=== PATIENT | male | born 1980 | race Caucasian/White ===

== ENCOUNTER → 2019-03-24 | Outpatient (CLI) | payer OTHER ==
--- NOTE | 2019-03-24 11:27 | US ---
EXAMINATION TYPE: US carotid duplex BILAT DATE OF EXAM: 03/24/2019 COMPARISON: NONE CLINICAL HISTORY: R41.3 Memory loss. EXAM MEASUREMENTS: RIGHT: Peak Systolic Velocity (PSV) cm/sec ----- Right CCA: 128.7 ----- Right ICA: 160.9 ----- Right ECA: 143.2 ICA/CCA ratio: 1.3 RIGHT: End Diastole cm/sec ----- Right CCA: 25.2 ----- Right ICA: 36.7 ----- Right ECA: 13.9 LEFT: Peak Systolic Velocity (PSV) cm/sec ----- Left CCA: 162.9 ----- Left ICA: 151.0 ----- Left ECA: 125.5 ICA/CCA ratio: 0.9 LEFT: End Diastole cm/sec ----- Left CCA: 34.7 ----- Left ICA: 24.8 ----- Left ECA: 9.1 VERTEBRALS (direction of flow): Right Vertebral: Antegrade Left Vertebral: Antegrade Rhythm: Normal No calcified plaque seen. Tortuous ICA bilaterally. IMPRESSION: 1. No hemodynamic significant stenosis. 2. No significant atherosclerotic plaque. Criteria for Assigning % of Stenosis / Diameter reduction (Estimation based on the indirect measurements of the internal carotid artery velocities (ICA PSV). 1. Normal (no stenosis)=ICA PSV < 125 cm/s: ratio < 2.0: ICA EDV<40 cm/s. 2. Less than 50% stenosis=ICA PSV < 125 cm/s: ratio < 2.0: ICA EDV<40 cm/s. 3. 50 to 69% stenosis=ICA PSV of 125 to 230 cm/s: ration 2.0 ? 4.0: ICA EDV 40-100 cm/s. 4. Greater than 70% stenosis to near occlusion= ICA PSV > 230 cm/s: ratio > 4.0: ICA EDV > 100 cm/s. 5. Near occlusion= ICA PSV velocities may be low or undetectable: variable ratio and ICA EDV. 6. Total occlusion=unable to detect flow.
--- NOTE | 2019-03-24 17:03 | MR ---
EXAMINATION TYPE: MR brain wo con DATE OF EXAM: 03/24/2019 COMPARISON: NONE HISTORY: Memory loss TECHNIQUE: Multiplanar, multisequence imaging of the brain and brainstem is performed without IV cont rast. FINDINGS: Diffusion weighted images demonstrate no evidence of a recent infarct or other diffusion abnormality. There is no worrisome extra-axial fluid collection. The ventricular system and cisternal spaces are normal in size and appearance. The brain volume is age appropriate.. Focus of T2 hyperintensity in t he right parietal deep white matter axial images 18 and 19 measures approximately 2.0 x 1.8 cm axial image 18 with some superior posterior extension. Midline structures demonstrate normal morphology. The craniocervical junction appears within normal limits. Normal vascular flow voids are present. Mild to moderate mucosal thickening involving bilater al maxillary sinuses, left greater than right. Mild/moderate mucosal thickening involving ethmoid sin uses prominent anteriorly and superiorly. Mild mucosal thickening bilateral maxillary sinuses. Globes are intact bilaterally. Nasal septum is deviated to left of midline. IMPRESSION: 1. Chronic paranasal sinus disease as detailed above. 2. Nonspecific deep parietal white matter lesion. Differential includes focal area of encephalomalaci a of indeterminant age even related to congenital vascular insult would be in differential. Demyelina ting plaque need to be excluded in patient this age. Other etiologies not excluded. Strict clinical c orrelation advised. Correlation with old outside CT or MRI would be beneficial. Consider contrast-enh anced imaging.
== END | disposition home or self-care (01) ==
LOC: RADUSMAIN 08:54
PROVIDERS: ATTEND Psychiatry & Neurology Neurology
DX: G93.89 Other specified disorders of brain (principal); J32.4 Chronic pansinusitis; R41.3 Other amnesia
CPT/HCPCS: 70551; 93880

== ENCOUNTER → 2019-04-10 | Outpatient (CLI) | payer OTHER ==
--- NOTE | 2019-04-10 07:52 | MR ---
EXAMINATION TYPE: MR brain w con DATE OF EXAM: 04/10/2019 COMPARISON: MRI Brain 03/24/19 HISTORY: Other amnesia, Abnormal MRI Brain 03/24/19 TECHNIQUE: Multiplanar, multisequence images of the brain and brainstem is performed with IV contrast, utilizing 10 mL intravenous Gadavist . FINDINGS: Post contrast images demonstrate no abnormal enhancement. The dural venous sinuses appear patent. No distinct T1 hypointense focus at area of T2 hyperintensity deep right parietal white raphael er. IMPRESSION: No suspicious enhancement to suggest active demyelinating plaque. Suspect remote infarct.
== END ==
LOC: RADMRIMAIN 07:11
PROVIDERS: ATTEND Psychiatry & Neurology Neurology
DX: R41.3 Other amnesia (principal); R93.89 Abnormal findings on diagnostic imaging of other specified body structures
CPT/HCPCS: 70552; A9585

== ENCOUNTER 2020-07-18 00:52 | Inpatient (IN) | payer OTHER ==
--- NOTE | 2020-07-18 03:10 | ED ---
Nausea/Vomiting/Diarrhea HPI - General Chief complaint: Nausea/Vomiting/Diarrhea Stated complaint: Poss pneumonia, Covid + Time Seen by Provider: 07/18/20 01:01 Source: patient, EMS Mode of arrival: EMS - History of Present Illness Initial comments: Patient's 40-year-old man transferred here from [facility]. He had gone there this evening to have evaluation and treatment for vomiting and diarrhea. Patient states that he had approximately 4 episodes of vomiting over the past day and he also had a number of episodes of watery diarrhea. Prior to that, approximately 5 or 6 days ago, patient had a positive coronavirus test. The workup at the other hospital did reveal some mild bilateral interstitial infiltrates. His sodium was 128. The patient did receive Rocephin and azithromycin and was transferred here as he remained hypoxemic running in the range of 9092% on room air. On arrival, patient is not dyspneic. He is on the nasal cannula and the saturations are 95%. MD complaint: nausea, vomiting, diarrhea Onset/Timin -: days(s) Description of Vomiting: food contents Description of Diarrhea: water Associated Abdominal Pain: No Quality: cramping Improves with: none Worsens with: none Associated Symptoms: cough, fever/chills - Related Data Allergies Allergy/AdvReac Type Severity Reaction Status Date / Time No Known Allergies Allergy Verified 07/18/20 01:07 Review of Systems ROS Statement: Those systems with pertinent positive or pertinent negative responses have been documented in the HPI. ROS Other: All systems not noted in ROS Statement are negative. Constitutional: Reports: fever, chills ENT: Denies: throat pain Respiratory: Reports: as per HPI, cough, dyspnea. Denies: wheezes Cardiovascular: Denies: chest pain, palpitations, edema, syncope Gastrointestinal: Reports: nausea, vomiting, diarrhea. Denies: abdominal pain, melena, hematochezia Genitourinary: Denies: dysuria, hematuria Musculoskeletal: Denies: back pain Skin: Denies: rash Neurological: Denies: headache, weakness, numbness Past Medical History Past Medical History: No Reported History History of Any Multi-Drug Resistant Organisms: None Reported Past Surgical History: No Surgical Hx Reported Past Psychological History: No Psychological Hx Reported Smoking Status: Never smoker Past Alcohol Use History: None Reported Past Drug Use History: None Reported General Exam General appearance: alert, in no apparent distress Head exam: Present: atraumatic, normocephalic Eye exam: Present: normal appearance. Absent: scleral icterus, conjunctival injection ENT exam: Present: normal oropharynx Neck exam: Present: normal inspection, full ROM. Absent: meningismus Respiratory exam: Present: normal lung sounds bilaterally. Absent: respiratory distress, wheezes, rales, rhonchi, stridor Cardiovascular Exam: Present: regular rate, normal rhythm, normal heart sounds. Absent: systolic murmur, diastolic murmur, rubs, gallop GI/Abdominal exam: Present: soft. Absent: distended, tenderness, guarding, rebound, rigid, mass Extremities exam: Present: normal inspection, normal capillary refill. Absent: pedal edema, calf tenderness Back exam: Present: normal inspection. Absent: CVA tenderness (R), CVA tenderness (L) Neurological exam: Present: alert Skin exam: Present: warm, dry, intact, normal color. Absent: rash Course Vital Signs 07/18/20 07/18/20 01:00 02:38 Temperature 99.5 F 99.3 F Pulse Rate 80 74 Respiratory 20 19 Rate Blood Pressure 118/70 118/70 O2 Sat by Pulse 95 95 Oximetry Disposition Clinical Impression: Hyponatremia, COVID-19, Pneumonia, Hypoxemia Disposition: ADMITTED IP TO THIS HOSP Condition: Good Is patient prescribed a controlled substance at d/c from ED?: No Referrals: Wilber Lowry MD [Primary Care Provider] - 1-2 days
[2020-07-18] MEDS ORDERED: ACETAMINOPHEN TAB 325 MG TAB PO PRN (03:12)
[2020-07-18] MEDS ORDERED: NALOXONE 0.4 MG/ML 1 ML VIAL IV PRN (03:12)
[2020-07-18] MEDS ORDERED: IBUPROFEN 400 MG TAB PO PRN (03:12)
[2020-07-18] MEDS ORDERED: ONDANSETRON 4 MG/2 ML VIAL IVP PRN (03:12)
[2020-07-18] MEDS ORDERED: SODIUM CHLORIDE 0.9% 1,000 ML IV ONE (03:15)
[2020-07-18] MEDS: SODIUM CHLORIDE 0.9% 1,000 ML IV SCH (03:25)
[2020-07-18] MEDS: FAMOTIDINE 20 MG TAB PO SCH ×2 (07:44→20:55)
[2020-07-18] MEDS ORDERED: PROCHLORPERAZINE 5 MG TAB PO PRN (08:00)
[2020-07-18] MEDS ORDERED: DEXAMETHASONE SOD PHOSPHATE 10 MG/ML 1 ML VIAL IV SCH (09:00)
[2020-07-18] MEDS: ZINC SULFATE 220 MG CAP PO SCH (13:31)
[2020-07-18] MEDS: CHOLECALCIFEROL 25 MCG (1000 IU) TABLET PO SCH (13:31)
[2020-07-18] MEDS: ASCORBIC ACID 500 MG TAB PO SCH (13:32)
[2020-07-18] MEDS: ENOXAPARIN 40 MG/0.4 ML SYRINGE SQ SCH (13:32)
--- NOTE | 2020-07-18 13:36 | XR ---
EXAMINATION TYPE: XR chest 1V portable DATE OF EXAM: 07/18/2020 COMPARISON: Prior chest x-ray 07/17/2020 HISTORY: Covid pneumonia TECHNIQUE: Single frontal view of the chest is obtained. FINDINGS: Patchy peripheral areas of increased attenuation are present within the lungs. No evident pneumothorax or pleural effusion. Cardiac mediastinal silhouette is stable. IMPRESSION: Findings consistent with patient's history of Covid pneumonia
[2020-07-18 13:45] LABS: ALT 45 U/L (4-49); AST 36 U/L (17-59); African American GFR (CKD) >90 (>60 ml/min/1.73 sqM); Albumin 3.8 g/dL (3.5-5.0); Albumin/Globulin Ratio 1.4; Alkaline Phosphatase 49 U/L (38-126); Anion Gap 9 mmol/L; Blood Urea Nitrogen 11 mg/dL (9-20); C Reactive Protein 31.8 mg/L (<10.0); Calcium 8.4 mg/dL (8.4-10.2); Carbon Dioxide 29 mmol/L (22-30); Chloride 100 mmol/L (98-107); Globulin 2.8 g/dL; Glucose 107 mg/dL (74-99); Non-African American GFR(CKD) >90 (>60 ml/min/1.73 sqM); Sodium 138 mmol/L (137-145); Total Bilirubin 0.5 mg/dL (0.2-1.3); Total Protein 6.6 g/dL (6.3-8.2)
--- NOTE | 2020-07-18 20:26 | P.HPIM ---
History of Present Illness H&P Date: 07/18/20 Chief Complaint: Short of breath History of presenting complaint: This is a pleasant 40-year-old patient of Dr. Lowry. Normally rather good health. Patient's and 6 kids of all had fever and seems to have recovered from COVID 19. About 10 days ago patient started having fevers. Bodyaches. Significant headaches. Became short of breath. Recently lost smell and taste. Last 3 days started having nausea and it could've been vomiting for couple days. Also started having diarrhea for 3 days. Also had dark brown phlegm. Patient was transferred here from [facility]. Radial presented yesterday evening. Takes x-ray did show bilateral infiltrates. Pulse ox today was about 90-92% on room air. Review of systems: GEN.: Fever chills tired EYES: None HEENT: None NECK: None RESPIRATORY: As above CARDIOVASCULAR: None GASTROINTESTINAL: As above GENITOURINARY: None MUSCULOSKELETAL: Bodyache LYMPHATICS: None HEMATOLOGICAL: None PSYCHIATRY: None NEUROLOGICAL: Headache Past medical history to include: None Social history: with 6 children. Does work in a custodial. Does not smoke or drink alcohol. No use of recreational drugs. Family history: Reviewed, noncontributory to presentation Physical examination: VITAL SIGNS: 99.5, 80, 20, 118/70, 95% on 2 L GENERAL: BMI 25.7, reclining in bed, short of breath. EYES: Pupils equal. Conjunctiva normal. HEENT: External appearance of nose and ears normal, oral cavity grossly normal. NECK: JVD not raised; masses not palpable. HEART: First and second heart sounds are normal; no edema. LUNGS: Respiratory rate increased, some basal crackles. ABDOMEN: Soft, nontender, liver spleen not palpable, no masses palpable. PSYCH: Alert and oriented x3; mood and affect anxiousl. NEUROLOGICAL: Cranial nerves grossly intact; no facial asymmetry, power and sensation grossly intact. LYMPHATICS: No lymph nodes palpable in the axilla and neck INVESTIGATIONS, reviewed in the clinical context: D-dimer 0.51 potassium 4.0 creatinine 0.91 CRP 31.8 Chest x-ray film personally reviewed by me-scattered infiltrates Assessment: -COVID 19 pneumonia. Patient's symptoms been present for about 10 days. At [facility] patient's pulse ox 90-92%. Patient has been started IV Solu- Medrol. -Questionable secondary bacterial component. 2 pneumonia. Start the patient IV ceftriaxone. Check pro-calcitonin -Acute gastroenteritis from COVID 19/coronavirus -Cephalgia from above Plan: Patient be started IV Decadron, subcu Lovenox, IV ceftriaxone and supplementation with vitamin C vitamin D zinc. Care was discussed with the patient. Check pro-calcitonin level. Past Medical History Past Medical History: No Reported History History of Any Multi-Drug Resistant Organisms: None Reported Past Surgical History: Appendectomy, Hernia Repair Past Anesthesia/Blood Transfusion Reactions: No Reported Reaction Past Psychological History: No Psychological Hx Reported Smoking Status: Never smoker Past Alcohol Use History: None Reported Past Drug Use History: None Reported - Past Family History Mother Family Medical History: No Reported History Father Family Medical History: No Reported History Medications and Allergies Home Medications Medication Instructions Recorded Confirmed Type No Known Home Medications 07/18/20 07/18/20 History Allergies Allergy/AdvReac Type Severity Reaction Status Date / Time No Known Allergies Allergy Verified 07/18/20 07:24 Physical Exam Vitals: Vital Signs Temp Pulse Pulse Pulse Resp BP BP 07/18/20 09:52 99.0 F 85 22 07/18/20 04:09 98.4 F 75 18 126/70 07/18/20 02:38 99.3 F 74 19 120/69 07/18/20 01:00 99.5 F 80 20 118/70 BP Pulse Ox 07/18/20 09:52 121/62 96 07/18/20 04:09 97 07/18/20 02:38 95 07/18/20 01:00 95 Intake and Output 07/17/20 07/18/20 07/18/20 22:59 06:59 14:59 Other: Voiding Method Toilet # Voids 1 # Bowel Movements 1 Weight 90.718 kg Results CBC & Chem 7: 07/18/20 12:49 Thrombosis Risk Factor Assmnt - Choose All That Apply Any of the Below Risk Factors Present?: No Other Risk Factors: No Other congenital or acquired thrombophilia - If yes, enter type in comment: No Thrombosis Risk Factor Assessment Level: Very Low Risk
[2020-07-18] MEDS: dexAMETHasone 2 MG TAB PO SCH (20:54)
[2020-07-19 06:41] LABS: Basophils % (A) 0 %; Eosinophils % (A) 0 %; HGB 14.2 gm/dL (13.0-17.5); Lymphocytes # (A) 0.6 k/uL (1.0-4.8); Lymphocytes % (A) 11 %; MCH 30.3 pg (25.0-35.0); MCHC 35.6 g/dL (31.0-37.0); MCV 85.3 fL (80.0-100.0); Mean Platelet Volume 7.1; Monocytes # (A) 0.2 k/uL (0-1.0); Monocytes % (A) 4 %; Neutrophils # (A) 4.6 k/uL (1.3-7.7); Neutrophils % (A) 84 %; Platelet Count 200 k/uL (150-450); RBC 4.69 m/uL (4.30-5.90); WBC 5.5 k/uL (3.8-10.6)
[2020-07-19] MEDS: CHOLECALCIFEROL 25 MCG (1000 IU) TABLET PO SCH (07:15)
[2020-07-19] MEDS: ENOXAPARIN 40 MG/0.4 ML SYRINGE SQ SCH (07:16)
[2020-07-19] MEDS: FAMOTIDINE 20 MG TAB PO SCH (07:16)
[2020-07-19] MEDS: ASCORBIC ACID 500 MG TAB PO SCH (07:16)
[2020-07-19] MEDS: dexAMETHasone 2 MG TAB PO SCH (07:16)
[2020-07-19] MEDS: ZINC SULFATE 220 MG CAP PO SCH (07:16)
[2020-07-19] MEDS: SODIUM CHLORIDE 0.9% 1,000 ML IV SCH (07:17)
[2020-07-19 09:54] LABS: African American GFR (CKD) 125.1 (60.0-200.0); Anion Gap 9.3 mmol/L (4.00-12.00); BUN/Creat Ratio 12.22 Ratio (12.00-20.00); C Reactive Protein 2.5 mg/dL (0.0-0.8); Calcium 8.8 mg/dL (8.7-10.3); Carbon Dioxide 28.7 mmol/L (21.6-31.8); Potassium 4.6 mmol/L (3.5-5.5)
[2020-07-19 14:40] VITALS: BP 138/72; PULSE 89; RESP 22; TEMP 98.4
--- NOTE | 2020-07-19 23:03 | P.DS ---
Providers Date of admission: 07/18/20 03:12 Expected date of discharge: 07/19/20 Attending physician: Cullen Nguyen Primary care physician: [facility] Course: Chief Complaint: Short of breath History of presenting complaint: This is a pleasant 40-year-old patient of Dr. Lowry. Normally rather good health. Patient's and 6 kids of all had fever and seems to have recovered from COVID 19. About 10 days ago patient started having fevers. Bodyaches. Significant headaches. Became short of breath. Recently lost smell and taste. Last 3 days started having nausea and it could've been vomiting for couple days. Also started having diarrhea for 3 days. Also had dark brown phlegm. Patient was transferred here from [facility]. Radial presented yesterday evening. Takes x-ray did show bilateral infiltrates. Pulse ox today was about 90-92% on room air. Today-patient doing well. Appetite is better. Decreased respiratory symptoms. Diarrhea improving. Pulse ox 95% room air. Discussed with the patient. He can take his oral medications at home. Discussed to use incentive spirometry., Return if any deterioration. COVID 19 precautions in quarantine. 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 No use of recreational drugs. Family history: Reviewed, noncontributory to presentation Physical examination: VITAL SIGNS: 98, 81, 24, 1 22 x 66, 95% room air GENERAL: BMI 25.7, sitting on a chair, looking better PSYCH: Alert and oriented x3; mood and affect normal INVESTIGATIONS, reviewed in the clinical context: July 19: White count 5.5 lymphocytes 0.6 d-dimer 0.36 potassium 4.6 CRP 2.5 pro-calcitonin 0.07 D-dimer 0.51 potassium 4.0 creatinine 0.91 CRP 31.8 Chest x-ray film personally reviewed by me-scattered infiltrates Assessment: -COVID 19 pneumonia. Patient's symptoms been present for about 10 days. At [facility] patient's pulse ox 90-92%. Patient has been started IV Solu- Medrol. -Questionable secondary bacterial component. 2 pneumonia. Start the patient IV ceftriaxone. Check pro-calcitonin -Acute gastroenteritis from COVID 19/coronavirus -Cephalgia from above Disposition: Home Patient Condition at Discharge: Stable Plan - Discharge Summary Discharge Rx Participant: Yes New Discharge Prescriptions: New Cefuroxime Axetil [Ceftin] 500 mg PO BID 1 Days #6 tab Prochlorperazine [Compazine] 5 mg PO Q8HR PRN #20 tab PRN Reason: Nausea And Vomiting dexAMETHasone [Hexadrol] 6 mg PO DAILY #24 tab Zinc Sulfate [Orazinc] 220 mg PO DAILY #30 cap Famotidine [Pepcid] 20 mg PO BID #60 tab Acetaminophen Tab [Tylenol] 650 mg PO Q6HR PRN tab PRN Reason: Mild Pain Or Fever > 100.5 Ascorbic Acid [Vitamin C] 500 mg PO DAILY #30 tab Cholecalciferol [Vitamin D3 (25 Mcg = 1000 Iu)] 100 mcg PO DAILY #30 tablet No Action No Known Home Medications Discharge Medication List No Known Home Medications 07/18/20 [History] Acetaminophen Tab [Tylenol] 650 mg PO Q6HR PRN tab 07/19/20 [Rx] Ascorbic Acid [Vitamin C] 500 mg PO DAILY #30 tab 07/19/20 [Rx] Cefuroxime Axetil [Ceftin] 500 mg PO BID 1 Days #6 tab 07/19/20 [Rx] Cholecalciferol [Vitamin D3 (25 Mcg = 1000 Iu)] 100 mcg PO DAILY #30 tablet 07/19/20 [Rx] Famotidine [Pepcid] 20 mg PO BID #60 tab 07/19/20 [Rx] Prochlorperazine [Compazine] 5 mg PO Q8HR PRN #20 tab 07/19/20 [Rx] Zinc Sulfate [Orazinc] 220 mg PO DAILY #30 cap 07/19/20 [Rx] dexAMETHasone [Hexadrol] 6 mg PO DAILY #24 tab 07/19/20 [Rx] Follow up Appointment(s)/Referral(s): Wilber Lowry MD [Primary Care Provider] - 1 Week Patient Instructions/Handouts: Viral Pneumonia (DC) Activity/Diet/Wound Care/Special Instructions: incentive spirometry covid 19 precautions Discharge Disposition: HOME SELF-CARE
== END 2020-07-19 17:43 | disposition home or self-care (01) | DRG 177 ==
LOC: EC 00:52 → 4SSUR 03:12
PROVIDERS: ADMIT Hospitalist; ATTEND Hospitalist
DX: U07.1 COVID-19 (principal); J12.82 Pneumonia due to coronavirus disease 2019; J15.9 Unspecified bacterial pneumonia; E87.1 Hypo-osmolality and hyponatremia; A08.39 Other viral enteritis
CPT/HCPCS: 71045; 80048; 80053; 84145; 85025; 85379; 86140; 99285

== ENCOUNTER 2020-07-20 10:02 | Emergency (ER) | payer OTHER ==
[2020-07-20 10:16] VITALS: RESP 18; TEMP 98.5
--- NOTE | 2020-07-20 10:56 | ED ---
SOB HPI - General Chief Complaint: Shortness of Breath Stated Complaint: COVID+/SOB-revisit Time Seen by Provider: 07/20/20 10:17 Source: patient Mode of arrival: wheelchair Limitations: no limitations - History of Present Illness Initial Comments: Patient 40-year-old male presents to emergency department complaining of shortness of breath. He noted that he was just discharged yesterday morning from facility with a diagnosis of covid Pneumonia. He said he woke up this morning and went to the bathroom and felt very short of breath. He decided to c ome in the emergency department just to make sure nothing was wrong or any complications from the covid pneumonia or happening. Per discharge note patient was prescribed an antibiotic, a steroid, and anti-nausea and Pepcid. He did not appear to be in any distress or pain. Patient denied any history of smoking, chest tightness, chest pain, productive cough, lightheadedness, dizziness, nausea, vomiting, diarrhea, constipation, fever, fatigue, chills, night, sweats, abnormal weight loss/gain. - Related Data Home Medications Medication Instructions Recorded Confirmed No Known Home Medications 07/18/20 07/18/20 Previous Rx's Medication Instructions Recorded Acetaminophen Tab [Tylenol] 650 mg PO Q6HR PRN tab 07/19/20 Ascorbic Acid [Vitamin C] 500 mg PO DAILY #30 tab 07/19/20 Cefuroxime Axetil [Ceftin] 500 mg PO BID 1 Days #6 tab 07/19/20 Cholecalciferol [Vitamin D3 (25 100 mcg PO DAILY #30 tablet 07/19/20 Mcg = 1000 Iu)] Famotidine [Pepcid] 20 mg PO BID #60 tab 07/19/20 Prochlorperazine [Compazine] 5 mg PO Q8HR PRN #20 tab 07/19/20 Zinc Sulfate [Orazinc] 220 mg PO DAILY #30 cap 07/19/20 dexAMETHasone [Hexadrol] 6 mg PO DAILY #24 tab 07/19/20 Allergies Allergy/AdvReac Type Severity Reaction Status Date / Time No Known Allergies Allergy Verified 07/20/20 10:16 Review of Systems ROS Statement: Those systems with pertinent positive or pertinent negative responses have been documented in the HPI. ROS Other: All systems not noted in ROS Statement are negative. Past Medical History Past Medical History: No Reported History History of Any Multi-Drug Resistant Organisms: None Reported Past Surgical History: Appendectomy, Hernia Repair Past Anesthesia/Blood Transfusion Reactions: No Reported Reaction Past Psychological History: No Psychological Hx Reported Smoking Status: Never smoker Past Alcohol Use History: None Reported Past Drug Use History: None Reported - Past Family History Mother Family Medical History: No Reported History Father Family Medical History: No Reported History General Exam Limitations: no limitations (Patient was soft-spoken) General appearance: alert, in no apparent distress Head exam: Present: atraumatic, normocephalic, normal inspection Eye exam: Present: normal appearance, PERRL, EOMI. Absent: scleral icterus, conjunctival injection, periorbital swelling ENT exam: Present: normal exam, mucous membranes moist Neck exam: Present: normal inspection. Absent: tenderness, meningismus, lymphadenopathy Respiratory exam: Present: normal lung sounds bilaterally. Absent: respiratory distress, wheezes, rales, rhonchi, stridor Cardiovascular Exam: Present: regular rate, normal rhythm, normal heart sounds. Absent: systolic murmur, diastolic murmur, rubs, gallop, clicks Extremities exam: Present: normal inspection, full ROM, normal capillary refill. Absent: tenderness, pedal edema, joint swelling, calf tenderness Neurological exam: Present: alert, oriented X3, CN II-XII intact Psychiatric exam: Present: normal affect, normal mood Skin exam: Present: warm, dry, intact, normal color. Absent: rash Course Vital Signs 07/20/20 10:13 Temperature 98.5 F Pulse Rate 83 Respiratory 18 Rate Blood Pressure 108/66 O2 Sat by Pulse 95 Oximetry Medical Decision Making - Medical Decision Making 40-year-old male status post discharge from facility on 07/19/2020 diagnosis of covid pneumonia. Case discussed with Dr. Neumann. We'll compare chest x-rays for progression of disease if no change patient will be discharged and instructed to follow with primary care. No significant difference between past and recent chest x-rays. - Radiology Data Radiology results: report reviewed, image reviewed Disposition Clinical Impression: Shortness of breath, COVID-19, Pneumonia Disposition: HOME SELF-CARE Condition: Stable Instructions (If sedation given, give patient instructions): Dyspnea (ED), Shortness of Breath (ED) Additional Instructions: Please return to the Emergency Department if symptoms worsen or any other concerns. Continue antibiotics until complete. Continue steroids until complete. Follow-up with primary care 1-2 days. Is patient prescribed a controlled substance at d/c from ED?: No Referrals: Slick Jackson NPC [Primary Care Provider] - 1-2 days Decision Time: 11:08
--- NOTE | 2020-07-20 10:58 | XR ---
EXAMINATION TYPE: XR chest 1V DATE OF EXAM: 07/20/2020 COMPARISON: Chest x-ray 2 days ago HISTORY: Covid 19 pneumonia TECHNIQUE: Single AP portable frontal upright view of the chest is obtained. FINDINGS: There a persistent multifocal increased opacities in the periphery of the mid to lower humberto gs. No pleural effusion or pneumothorax seen bilaterally. The cardiac silhouette size is stable and within normal limits. The osseous structures are intact. IMPRESSION: Bilateral peripheral mid to lower lung multifocal acute infiltrates consistent with covi d 19 infection. No significant change or progression from prior.
[2020-07-20 11:16] VITALS: BP 124/74; PULSE 89
== END 2020-07-20 11:16 | disposition home or self-care (01) ==
LOC: EC 10:02
DX: U07.1 COVID-19 (principal); J12.82 Pneumonia due to coronavirus disease 2019
CPT/HCPCS: 71045; 99283